=== PATIENT | female | born 1955 | race Caucasian/White ===

== ENCOUNTER 2017-07-21 15:01 | Emergency (ER) | payer SELFPAY ==
[2017-07-21 15:11] VITALS: BP 102/62; BMI 21.6
[2017-07-21] MEDS ORDERED: IBUPROFEN 600 MG TABLET (FP) PO ONE ×2 (16:12→16:15)
--- NOTE | 2017-07-21 16:46 | PDOC ---
History of Present Illness - General Chief Complaint: Respiratory Stated Complaint: CHEST PAIN Time Seen by Provider: 07/21/17 15:42 - History of Present Illness Initial Comments: 07/21/17 16:42 CHIEF COMPLAINT: flu symptoms HISTORY OF PRESENT ILLNESS: 61 yo F with hx of HTN presents to [facility] with fever, cough, body aches, generalized malaise, sore throat x 1 week, and vomiting and abdominal pain yesterday. Patient states she has chest pain "from coughing so much." Family reports that she has been tolerating po but not drinking "that much" water. Family and patient report the patient has not taken any medications for fever or "for anything" yet. PAST MEDICAL HISTORY: as per HPI FAMILY HISTORY: Denies SOCIAL HISTORY: Denies tobacco, alcohol, illicit drug use. SURGICAL HISTORY: Denies ALLERGIES: No known drug allergies REVIEW OF SYSTEMS General/Constitutional: Fever. Denies weakness, weight change. HEENT: Denies change in vision. Denies ear pain or discharge. Denies sore throat. Cardiovascular: Denies chest pain or shortness of breath. Respiratory: Denies cough, wheezing, or hemoptysis. Gastrointestinal: Denies nausea, vomiting, diarrhea or constipation. Denies rectal bleeding. Genitourinary: Denies dysuria, frequency, or change in urination. Musculoskeletal: Generalized body aches. Skin and breasts: Denies rash or easy bruising. Neurologic: Denies headache, vertigo, loss of consciousness, or loss of sensation. PHYSICAL EXAM General Appearance: Well-appearing, appropriately dressed. No apparent distress. HEENT: Post nasal drip, erythematous oropharyhx. EOMI, PERRLA, normal ENT inspection, normal voice, TMs normal, pharynx normal. No conjunctival pallor. No photophobia, scleral icterus. Neck: Supple. Trachea midline. No tenderness, rigidity, carotid bruit, stridor , lymphadenopathy, or thyromegaly. Respiratory/Chest: Lungs CTAB. No shortness of breath, chest tenderness, respiratory distress, accessory muscle use. No crackles, rales, rhonchi, stridor , wheezing, dullness Cardiovascular: RRR. S1, S2. Gastrointestinal/Abdominal: Normal bowel sounds. Abdomen soft, non-distended. No tenderness or rebound tenderness. No organomegaly, pulsatile mass, guarding , hernia, hepatomegaly, splenomegaly. Musculoskeletal/Extremities: Normal inspection. FROM of all extremities, normal capillary refill. Pelvis Stable. No CVA tenderness. No tenderness to extremities, pedal edema, swelling, erythema or deformity. Integumentary: Appropriate color, dry, warm. No cyanosis, erythema, jaundice or rash Neurologic: [employer] II-XII intact. Fully oriented, alert. Appropriate mood/affect. Motor strength 5/5. No appreciable EOM palsy, facial droop or sensory deficit. Past History - Past Medical History Allergies/Adverse Reactions: Allergies Allergy/AdvReac Type Severity Reaction Status Date / Time No Known Allergies Allergy Verified 07/21/17 15:11 Home Medications: Ambulatory Orders Benzonatate [Tessalon Pearls -] 100 mg PO TID #21 capsule 07/21/17 Ibuprofen [Motrin -] 600 mg PO TID PRN #21 tablet 07/21/17 COPD: No HTN: Yes - Suicide/Smoking/Psychosocial Hx Smoking History: Never smoked *Physical Exam - Vital Signs Last Vital Signs Temp Pulse Resp BP Pulse Ox 102.8 F H 120 H 20 102/62 100 07/21/17 15:08 07/21/17 15:08 07/21/17 15:08 07/21/17 15:08 07/21/17 15:08 ED Treatment Course - Medications Given in the ED: ED Medications Discontinued Medications Generic Name Dose Route Start Last Admin Trade Name Freq PRN Reason Stop Dose Admin Ibuprofen 600 mg 07/21/17 16:12 07/21/17 16:20 Motrin - PO 07/21/17 16:13 600 mg ONCE ONE Administration Medical Decision Making - Medical Decision Making 07/21/17 16:44 61 yo F with hx of HTN presents [facility] [place] with fever, cough, body aches, generalized malaise, sore throat x 1 week, and vomiting and abdominal pain yesterday -influenza swab -Motrin 600 mg *DC/Admit/Observation/Transfer Diagnosis at time of Disposition: Influenza A - Discharge Dispostion Disposition: HOME Condition at time of disposition: Stable Admit: No - Prescriptions Prescriptions: Benzonatate [Tessalon Pearls -] 100 mg PO TID #21 capsule Ibuprofen [Motrin -] 600 mg PO TID PRN #21 tablet PRN Reason: Fever Or Pain - Referrals Referrals: Andressa Ko MD [Staff Physician] - - Patient Instructions Printed Discharge Instructions: DI for Influenza -- Adult Additional Instructions: Please take medications as prescribed and follow up with your primary care doctor next week. Please drink LOTS of fluids and get plenty of rest. If your symptoms persist past 3 days, or you develop persistent vomiting, diarrhea, are unable to tolerate any food or fluids, or you develop any new or worsening symptoms, please return to the ER. - Post Discharge Activity
[2017-07-21 17:22] VITALS: PULSE 108; TEMP 100.5
== END 2017-07-21 17:18 | disposition home or self-care (01) ==
LOC: JERFT 15:01
DX: J10.1 Influenza due to other identified influenza virus with other respiratory manifestations (principal)
CPT/HCPCS: 87804; 99281-25